=== PATIENT | male | born 1990 ===

== ENCOUNTER 2020-11-11 10:11 | Inpatient (IN) | payer OTHER ==
[~2020-11-11] VITALS: Ht 177.8 cm; Wt 81.8 kg
[2020-11-11 11:18] LABS: BASOPHILS % (AUTO) 0.6 % (0.0-2.0); EOSINOPHILS % (AUTO) 1.4 % (1.0-6.0); HEMATOCRIT 45.1 % (41-53); HEMOGLOBIN 15.2 g/dL (13.5-17.5); LYMPHOCYTES # (AUTO) 1.3 K/uL (1.0-4.8); MEAN CORPUSCULAR HEMOGLOBIN 30.2 pg (26.0-34.0); MEAN CORPUSCULAR HGB CONC 33.6 G/dL (31.0-37.0); MEAN CORPUSCULAR VOLUME 90 fL (80-100); MONOCYTES # (AUTO) 0.6 K/uL (0.1-1.0); MONOCYTES % (AUTO) 14.4 % (2.0-9.0); NEUTROPHILS # (AUTO) 2.5 K/uL (1.8-7.7); NEUTROPHILS % (AUTO) 55.6 % (40.0-70.0); PLATELET COUNT (AUTO) 191 K/uL (150-450); RED BLOOD CELL COUNT(AUTO) 5.02 MIL/uL (4.50-5.90); RED CELL DISTRIBUTION WIDTH 13.7 % (11.5-14.5)
[2020-11-11 11:24] LABS: COVID AG,FIA SOURCE NASOPHARYNGEAL
[2020-11-11 11:26] LABS: ANION GAP 6 mmol/L (8-16); CALCIUM, TOTAL 9.2 mg/dL (8.8-10.5); CARBON DIOXIDE 31 mmol/L (22-29); CHLORIDE 102 mmol/L (98-107); CREATININE 1.16 mg/dL (0.60-1.30); GLOMERULAR FILTR. RATE CALC > 60 mL/min (>60); GLUCOSE,RANDOM 86 mg/dL (70-110); POTASSIUM 4.2 mmol/L (3.5-5.1); SODIUM SERUM 139 mmol/L (136-145); UREA NITROGEN, BLOOD 15 mg/dL (7-18)
[2020-11-11] MEDS ORDERED: CloNIDine HCL 0.2 MG TABLET PO ONE (11:30)
[2020-11-11] MEDS ORDERED: ONDANSETRON HCL 4 MG TABLET PO ONE (11:30)
[2020-11-11 11:31] LABS: ALANINE AMINOTRANSFERASE 40 U/L (12-78); ALBUMIN 4.1 g/dL (3.4-5.0); ALKALINE PHOSPHATASE 63 U/L (46-116); ASPARTATE AMINOTRANSFERASE 22 U/L (15-37); BILIRUBIN,TOTAL 0.7 mg/dL (0.1-1.0); TOTAL PROTEIN, SERUM 7.8 g/dL (6.4-8.2)
[2020-11-11 13:55] VITALS: BP 113/72
[2020-11-11] MEDS ORDERED: METOCLOPRAMIDE HCL 5 MG/ML 2 ML VIAL IVP PRN (14:30)
[2020-11-11] MEDS ORDERED: DICYCLOMINE HCL 10 MG CAPSULE PO PRN (14:30)
[2020-11-11] MEDS ORDERED: SODIUM CHLORIDE 0.9% 1,000 ML IV ONE (14:30)
[2020-11-11] MEDS ORDERED: LOPERAMIDE HCL 2 MG CAPSULE PO PRN (14:30)
[2020-11-11] MEDS ORDERED: CloNIDine HCL 0.1 MG TABLET PO PRN (14:30)
[2020-11-11] MEDS ORDERED: LORazepam 2 MG/ML VIAL IVP PRN (14:30)
[2020-11-11] MEDS: ACETAMINOPHEN 325 MG TABLET PO PRN (15:30)
[2020-11-11 19:46] VITALS: BP 116/70
[2020-11-11] MEDS: TEMAZEPAM 15 MG CAPSULE PO SCH (20:32)
[2020-11-11] MEDS: ACETAMINOPHEN/CODEINE 300-15 MG TABLET PO PRN (20:36)
[2020-11-12 04:00] VITALS: BP 120/76
[2020-11-12 08:35] VITALS: BP 116/67
[2020-11-12 11:58] VITALS: BP 102/69
[2020-11-12] MEDS: ACETAMINOPHEN/CODEINE 300-15 MG TABLET PO PRN ×2 (12:08→16:26)
[2020-11-12 16:21] VITALS: BP 119/69
[2020-11-12 19:46] VITALS: BP 111/73
[2020-11-12] MEDS: TEMAZEPAM 15 MG CAPSULE PO SCH (20:50)
[2020-11-13] MEDS: ACETAMINOPHEN/CODEINE 300-15 MG TABLET PO PRN ×4 (03:00→23:20)
[2020-11-13 03:05] VITALS: BP 122/64
[2020-11-13 07:51] VITALS: BP 126/74
[2020-11-13 19:30] VITALS: BP 117/74
[2020-11-13] MEDS: TEMAZEPAM 15 MG CAPSULE PO SCH (20:40)
[2020-11-14 04:00] VITALS: BP 115/72
[2020-11-14 08:16] VITALS: BP 122/72
[2020-11-14 08:21] VITALS: BP 126/70
[2020-11-14] MEDS ORDERED: ACET-2247 PO (09:37)
[2020-11-14] MEDS: ACETAMINOPHEN/CODEINE 300-15 MG TABLET PO PRN ×2 (10:03→16:06)
[2020-11-14] MEDS ORDERED: CefTRIAXone 1 GM/DEXTROSE 50 ML IV ONE (19:30)
[2020-11-14 20:00] VITALS: BP 114/65
[2020-11-14] MEDS: TEMAZEPAM 15 MG CAPSULE PO SCH (20:24)
[2020-11-14] MEDS: ACETAMINOPHEN 325 MG TABLET PO PRN (20:27)
[2020-11-14] MEDS ORDERED: SODIUM CHLORIDE 0.9% 500 ML IV ONE (20:47)
[2020-11-14 22:49] LABS: APPEARANCE,URINE CLEAR (CLEAR); BILIRUBIN,URINE NEGATIVE (NEGATIVE); GLUCOSE, URINE (UA) NEGATIVE (NEGATIVE); KETONES,URINE NEGATIVE (NEGATIVE); LEUKOCYTE ESTERASE ,URINE MODERATE (NEGATIVE); NITRATE,URINE NEGATIVE (NEGATIVE); OCCULT BLOOD,URINE NEGATIVE (NEGATIVE); PROTEIN,URINE NEGATIVE (NEGATIVE)
[2020-11-14 22:52] LABS: AMPHET/METH SCREEN,URINE POSITIVE (NEGATIVE); BARBITURATE SCREEN, URINE NEGATIVE (NEGATIVE); BENZODIAZEPINES SCREEN,URINE NEGATIVE (NEGATIVE); CANNABINOID SCREEN,URINE POSITIVE (NEGATIVE); COCAINE SCREEN,URINE NEGATIVE (NEGATIVE); METHADONE SCREEN, URINE NEGATIVE (NEGATIVE); OPIATE SCREEN,URINE POSITIVE (NEGATIVE)
[2020-11-14 22:54] LABS: PHENCYCLIDINE SCREEN,URINE NEGATIVE (NEGATIVE)
[2020-11-14 23:05] LABS: BACTERIA,URINE Rare /HPF (None Seen); RBC,URINE None Seen /HPF (0-2); WBC,URINE >100 /HPF (0-5)
[2020-11-14 23:06] LABS: SQUAMOUS EPITHELIAL CELL,UR Rare /LPF (None Seen)
[2020-11-14 23:50] VITALS: BP 114/67
[2020-11-15 04:05] VITALS: BP 115/68
== END 2020-11-15 07:16 | DRG 897 ==
LOC: EMS 10:11 → 6S 12:59
PROVIDERS: ADMIT Internal Medicine; ATTEND Internal Medicine
DX: F11.13 Opioid abuse with withdrawal (principal); N39.0 Urinary tract infection, site not specified; F15.13 Other stimulant abuse with withdrawal; F19.139 Other psychoactive substance abuse with withdrawal, unspecified; Z88.0 Allergy status to penicillin; F12.90 Cannabis use, unspecified, uncomplicated; F17.210 Nicotine dependence, cigarettes, uncomplicated; Z20.822 Contact with and (suspected) exposure to COVID-19
CPT/HCPCS: 80053; 81001; 85025; 87086; 87426; 99285; G0480; J0696; J7030; J7040; Q0162